=== PATIENT | male | born 1950 | race Caucasian/White ===

== ENCOUNTER → 2018-04-07 14:52 | Outpatient (CLI) | payer OTHER, SELFPAY ==
[2018-04-07 15:49] LABS: Prothrombin Time 55.6 SECONDS (10.1-12.7)
[2018-04-07 16:12] LABS: INR 5.3 (0.9-1.3)
== END ==
PROVIDERS: PCP Internal Medicine; Visit Provider Internal Medicine
DX: Z79.01 Long term (current) use of anticoagulants (principal)
CPT/HCPCS: 36415; 85610

== ENCOUNTER → 2018-04-09 11:28 | Outpatient (CLI) | payer OTHER, SELFPAY ==
[2018-04-09 12:31] LABS: INR 2.4 (0.9-1.3)
== END ==
PROVIDERS: PCP Internal Medicine; Visit Provider Internal Medicine
DX: Z79.01 Long term (current) use of anticoagulants (principal)
CPT/HCPCS: 36415; 85610

== ENCOUNTER → 2018-04-22 16:01 | Outpatient (CLI) | payer OTHER, SELFPAY ==
[2018-04-22 17:48] LABS: INR 3.5 (0.9-1.3); Prothrombin Time 38.9 SECONDS (10.1-12.7)
== END ==
PROVIDERS: PCP Internal Medicine; Visit Provider Internal Medicine
DX: Z79.01 Long term (current) use of anticoagulants (principal)
CPT/HCPCS: 36415; 85610

== ENCOUNTER → 2018-06-23 14:45 | Outpatient (CLI) | payer OTHER, SELFPAY ==
[2018-06-23 16:14] LABS: Prothrombin Time 61.8 SECONDS (10.1-12.7)
[2018-06-23 16:25] LABS: INR 5.5 (0.9-1.3)
== END ==
PROVIDERS: PCP Internal Medicine; Visit Provider Internal Medicine
DX: Z79.01 Long term (current) use of anticoagulants (principal)
CPT/HCPCS: 36415; 85610

== ENCOUNTER → 2018-06-29 13:33 | Outpatient (CLI) | payer OTHER, SELFPAY ==
[2018-06-29 13:53] LABS: INR 1.3 (0.9-1.3); Prothrombin Time 14.4 SECONDS (10.1-12.7)
== END ==
PROVIDERS: PCP Internal Medicine; Visit Provider Internal Medicine
DX: Z79.01 Long term (current) use of anticoagulants (principal)
CPT/HCPCS: 36415; 85610

== ENCOUNTER → 2018-07-06 13:44 | Outpatient (CLI) | payer OTHER, SELFPAY ==
[2018-07-06 14:31] LABS: INR 2.5 (0.9-1.3); Prothrombin Time 27.9 SECONDS (10.1-12.7)
== END ==
PROVIDERS: PCP Internal Medicine; Visit Provider Internal Medicine
DX: Z79.01 Long term (current) use of anticoagulants (principal)
CPT/HCPCS: 36415; 85610

== ENCOUNTER → 2018-07-20 16:06 | Outpatient (CLI) | payer OTHER, SELFPAY ==
[2018-07-20 17:56] LABS: INR 3.4 (0.9-1.3)
== END ==
PROVIDERS: PCP Internal Medicine; Visit Provider Internal Medicine
DX: Z79.01 Long term (current) use of anticoagulants (principal)
CPT/HCPCS: 36415; 85610